=== PATIENT | female | born 1970 | race Caucasian/White ===

== ENCOUNTER 2016-03-20 17:28 | Emergency (ER) | payer MEDICAID ==
--- NOTE | 2016-03-20 18:31 | Emergency Department Record ---
History of Present Illness - General Chief complaint: Extremity Problem Stated complaint: CALF PAIN Time Seen by Provider: 03/20/16 18:23 Source: Patient Mode of Arrival: Ambulatory Limitations: No limitations - History of Present Illness Initial comments: 45 yo female presents with right leg pain for about 2 weeks. She denies any injury. No fever or redness. She has had a knot in the calf. No history of DVT. No chest pain or shortness of breath. The pain started in the calf and then up the leg. MD Complaint: Extremity pain, Extremity swelling Onset/Timin -: Week(s) Location: Right, Lower Leg History of Same: No Radiation: Proximal Severity scale (1-10): 8 Quality: Burning, Sharp Consistency: Intermittent Improves with: Immobilization, Rest Worsens with: Exertion, Walking, Weight bearing Associated Symptoms: Denies other symptoms - Related Data Allergies Allergy/AdvReac Type Severity Reaction Status Date / Time hydrocodone bitartrate Allergy HIVES Verified 03/20/16 17:44 [From Vicodin] hydromorphone HCl Allergy HIVES Verified 03/20/16 17:44 [From Dilaudid] oxycodone HCl [From Percocet] Allergy HIVES Verified 03/20/16 17:44 Travel Screening - Travel/Exposure Within Last 30 Days Have you traveled within the last 30 days?: No - Travel/Exposure Within Last Year Have you traveled outside the [place] in the last year?: No - Additonal Travel Details Have you been exposed to anyone with a communicable illness?: No - Travel Symptoms Symptom Screening: None Review of Systems Constitutional: Denies: Chills, Fever, Malaise, Weakness Eyes: Denies: Eye discharge, Eye pain, Photophobia, Vision change ENT: Denies: Congestion, Throat pain Respiratory: Denies: Cough, Dyspnea, Hemoptysis, Stridor, Wheezes Cardiovascular: Denies: Chest pain, Palpitations, Syncope Endocrine: Denies: Fatigue Gastrointestinal: Denies: Abdominal pain, Diarrhea, Hematemesis, Hematochezia, Nausea, Vomiting Genitourinary: Denies: Dysuria Musculoskeletal: Reports: Back pain, Myalgia. 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) - RESPIRATORY Hx Respiratory Disorders: No - CARDIOVASCULAR Hx Cardio Disorders: No - NEURO Hx Neuro Disorders: Yes Hx Neuropathy: Yes Comment:: TBI 2013 - GI Hx GI Disorders: No - Hx Genitourinary Disorders: Yes Comment:: Endometriosis - ENDOCRINE Hx Endocrine Disorders: No - MUSCULOSKELETAL Hx Musculoskeletal Disorders: Yes Hx Back Injury: Yes - PSYCH Hx Psych Problems: No - HEMATOLOGY/ONCOLOGY Hx Hematology/Oncology Disorders: No Family Medical History Any Significant Family History?: No Physical Exam - General General Appearance: Alert, Oriented x3, Cooperative, No acute distress Limitations: No limitations - Head Head exam: Atraumatic, Normal inspection - Eye Eye exam: Normal appearance, PERRL. negative: Conjunctival injection - ENT ENT exam: Normal exam Ear exam: Normal external inspection Nasal Exam: Normal inspection Mouth exam: Normal external inspection Teeth exam: Normal inspection Throat exam: Normal inspection - Neck Neck exam: Normal inspection, Full ROM. negative: Tenderness - Respiratory Respiratory exam: Normal lung sounds bilaterally. negative: Respiratory distress - Cardiovascular Cardiovascular Exam: Regular rate, Normal rhythm, Normal heart sounds - GI/Abdominal GI/Abdominal exam: Soft. negative: Tenderness - Rectal Rectal exam: Deferred - exam: Deferred - Extremities Extremities exam: Normal inspection, Full ROM, Normal capillary refill, Tenderness. negative: Joint swelling, Pedal edema - Back Back exam: Reports: Normal inspection, Full ROM. Denies: CVA tenderness (R), CVA tenderness (L), Muscle spasm, Paraspinal tenderness, Rash noted, Tenderness , Vertebral tenderness - Neurological Neurological exam: Alert, Normal gait, Oriented X3, Reflexes normal - Psychiatric Psychiatric exam: Normal affect, Normal mood - Skin Skin exam: Dry, Intact, Normal color, Warm Course Vital Signs 03/20/16 03/20/16 17:37 18:06 Temperature 98.0 F 98.0 F Pulse Rate [ 87 Pulse Ox Probe] Respiratory 16 16 Rate Blood Pressure 115/73 [Left Arm] Pulse Ox 96 96 - Reevaluation(s) Reevaluation #1: I DW the patient no US I NIRAV Tobar who accepts the patient for transfer 03/20/16 18:28 Disposition Disposition: Transfer Clinical Impression: Pain of left calf Disposition: Home, Self-Care [place] [facility] [place]: No [place] available at [facility] Accepting Physician: Amadou Time Discussed w/Accepting Physician: 18:31 Condition: (2) Stable Instructions: Deep Venous Thrombosis (ED) Additional Instructions: Go directly [place] [facility] [place] to rule out a blood clot in the right leg Forms: Patient Portal Access Time of Disposition: 18:31
[2016-03-20] MEDS: KETOROLAC 30 MG/ML VIAL IM ONE (18:45)
== END 2016-03-20 19:04 | disposition home or self-care (01) ==
LOC: ER 17:28
DX: M79.661 Pain in right lower leg (principal)
CPT/HCPCS: 99284 ×2; 96372; J1885

== ENCOUNTER 2017-03-04 13:28 | Emergency (ER) | payer MEDICAID ==
[2017-03-04] MEDS ORDERED: 0.9 % SODIUM CHLORIDE 1,000 ML BAG IV ONE ×2 (13:29→14:43)
[2017-03-04] MEDS ORDERED: LORAZEPAM 2 MG/ML VIAL IV ONE ×2 (13:30→13:58)
--- NOTE | 2017-03-04 13:37 | Emergency Department Record ---
Anxiety - General Chief Complaint: Anxiety Stated Complaint: ANXIETY Time Seen by Provider: 03/04/17 13:28 Source: Patient, Family Mode of Arrival: Ambulatory Limitations: No limitations - History of Present Illness Initial Comments: 46 yo female presents with significant anxiety, depression, PTSD, with two days of increasing symptoms. She was seen earlier in the week with concerns about her medications. Her medications were discontinued. Her anxiety levels have abruptly increased. She is tearful, rapid thoughts, unable to control her anxiety. She was again seen by her PCP office today. With the escalation of symptoms she was referred to the ER. She reports muscle spasms, twitches, and feels unstable. Her Elavil, Flexeril, Effexor, and Trazadone have been held. She has had similar symptoms in the past that were attributed to possible serotonin syndrome. MD Complaint: Anxiety -: Days(s) (2) Symptoms: Dyspnea Place: Home Severity: Severe Quality: Constant Provoking factors: Emotional stress Improves With: Nothing Worsens With: Other (Removal of medications) Associated symptoms: Headaches (migraine), Nausea/vomiting, Shortness of breath - Related Data Home Medications: Home Medications Medication Instructions Recorded Confirmed Last Taken Amitriptyline HCl 25 mg PO DAILY 03/04/17 03/04/17 03/01/17 Trazodone HCl 50 mg PO QHS 03/04/17 03/04/17 03/01/17 Venlafaxine HCl [Effexor Xr] 150 mg PO DAILY 03/04/17 03/04/17 03/01/17 Allergies/Adverse Reactions: Allergies Allergy/AdvReac Type Severity Reaction Status Date / Time hydromorphone HCl Allergy HIVES Verified 03/04/17 14:35 [From Dilaudid] hydrocodone bitartrate AdvReac Mild ITCHING Verified 03/04/17 14:35 [From Vicodin] oxycodone HCl [From Percocet] AdvReac Mild ITCHING Verified 03/04/17 14:35 Review of Systems Constitutional: Denies: Chills, Fever, Malaise, Weakness Eyes: Reports: Vision change. Denies: Eye discharge, Eye pain, Photophobia ENT: Denies: Congestion, Ear pain, Throat pain Respiratory: Denies: Cough, Dyspnea, Hemoptysis, Stridor, Wheezes Cardiovascular: Denies: Chest pain, Palpitations, Syncope Endocrine: Reports: Fatigue. Denies: Polydipsia, Polyuria Gastrointestinal: Reports: Diarrhea, Nausea. Denies: Abdominal pain, Vomiting Genitourinary: Denies: Dysuria, Frequency, Urgency Musculoskeletal: Denies: Arthralgia, Back pain, Myalgia, Neck pain Skin: Denies: Bruising, Change in color, Rash Neurological: Reports: Headache (migraines). Denies: Abnormal gait, Confusion, Numbness, Paresthesias, Seizure, Tingling, Tremors, Vertigo, Weakness Psychiatric: Reports: Anxiety, Depression. 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) - RESPIRATORY Hx Respiratory Disorders: No - CARDIOVASCULAR Hx Cardio Disorders: No - NEURO Hx Neuro Disorders: Yes Hx Neuropathy: Yes Comment:: TBI 2013 - GI Hx GI Disorders: No - Hx Genitourinary Disorders: Yes Comment:: Endometriosis - ENDOCRINE Hx Endocrine Disorders: No - MUSCULOSKELETAL Hx Musculoskeletal Disorders: Yes Hx Back Injury: Yes - PSYCH Hx Psych Problems: No - HEMATOLOGY/ONCOLOGY Hx Hematology/Oncology Disorders: No Physical Exam - General General Appearance: Alert, Oriented x3, Cooperative, Anxious Limitations: No limitations - Head Head exam: Atraumatic, Normal inspection - Eye Eye exam: Normal appearance, PERRL. negative: Conjunctival injection, Periorbital swelling, Scleral icterus - ENT ENT exam: Normal exam, Mucous membranes moist Ear exam: Normal external inspection Nasal Exam: Normal inspection Mouth exam: Normal external inspection Teeth exam: Normal inspection Throat exam: Normal inspection - Neck Neck exam: Normal inspection, Full ROM. negative: Tenderness - Respiratory Respiratory exam: Normal lung sounds bilaterally. negative: Respiratory distress, Rhonchi, Stridor, Wheezes - Cardiovascular Cardiovascular Exam: Regular rate, Normal rhythm, Normal heart sounds Peripheral Pulses: 2+: Radial (R), Radial (L) - GI/Abdominal GI/Abdominal exam: Soft - Rectal Rectal exam: Deferred - exam: Deferred - Extremities Extremities exam: Normal inspection. negative: Pedal edema - Back Back exam: Denies: CVA tenderness (R), CVA tenderness (L) - Neurological Neurological exam: Abnormal gait, Alert, Other (Clonus is present, Myoclonis is present). negative: Motor sensory deficit, Reflexes normal (brisk) - Psychiatric Psychiatric exam: Agitated, Anxious, Depressed - Skin Skin exam: Dry, Intact, Normal color, Warm Course - Reevaluation(s) Reevaluation #1: 03/04/17 14:00 The patient examination has some features of seritonin syndrome including tremor , muscle somewhat resistant to movement, sweating. She is not tachycardic with a HR is about 90. No fever. No hypertension. She has nausea and diarrhea. 03/04/17 14:06 EKG 14:00 NSR rate of 89 intervals normal, axis normal, QT normal, ST normal. 03/04/17 14:33 The labs were reviewed. No acute changes on the CBC,CMP,Toxicology labs The patient is doing much better after the Ativan No hypertension 03/04/17 14:34 03/04/17 14:42 The patient is doing much better Hr is 84. She is calm. Speaking is a comfortable tone and speed. She appears relaxed. 03/04/17 15:13 The patient is sleeping comfortably 03/04/17 15:14 HR is currently 85 03/04/17 15:31 The patient is awake, still with her chronic back pain and migraine. I explained narcotics can worsen serotonin syndrome and do not recommend Benadryl as well is to be avoided. 03/04/17 15:59 The patient continues to do very well The patient's PCP Ines Bhatia was at the bedside as well The [facility] will schedule follow up with the clinic as well as the behavioral health related referrals We discussed at length the avoidance of her prior medications She is not tremulous. Her HR is in the 80's, BP not elevated. No fevers. Normal interaction and mentation without agitation. She is calm and cooperative. Although serotonin syndrome has been considered her symptoms currently reflex significant anxiety, she is at baseline without symptoms currently of serotonin syndrome. She responded extremely well to her care in the ED today. She prefers DC home with very reliable family. No indication at this time of need for further observation or observation. She feels safe and believes home for the holiday will be very good. Her main concern is avoiding her mother who is a significant life stress for her Her PCP will provided Ativan for the weekend until a first of the week follow up. 03/04/17 16:33 Medical Decision Making - Lab Data Result diagrams: 03/04/17 13:39 03/04/17 13:39 Disposition Disposition: Discharge Clinical Impression: Anxiety reaction Depression Qualifiers: Depression Type: unspecified Qualified Code(s): F32.9 - Major depressive disorder, single episode, unspecified Condition: (1) Good Instructions: Serotonin Syndrome (ED), Anxiety (ED) Additional Instructions: Immediately return to the ER over the weekend if you feel like the medications are not working Take the Ativan as directed by your doctor Follow up next week as scheduled Do not take any of your prior antidepressants Forms: Patient Portal Access Time of Disposition: 16:10 Quality - Quality Measures Quality Measures: N/A - Blood Pressure Screening Does Patient Have Any of the Following: No Blood Pressure Classification: Pre-Hypertensive BP Reading Systolic Measurement: 120 Diastolic Measurement: 82 Screening for High Blood Pressure: < Pre-Hypertensive BP, F/U Documented > [ [id number]] Pre-Hypertensive Follow-up Interventions: Referral to alternative/primary care provider.
[2017-03-04] MEDS ORDERED: ACETAMINOPHEN 1,000 MG/100 ML BTL IVPB ONE (13:44)
[2017-03-04 13:49] LABS: GRAN % 66.3 % (47-80); HEMOGLOBIN 15.3 gm/dl (11.6-16.0); LYMPH % 27.7 % (16-45); MEAN CELL VOLUME 83.3 fl (81-97); MEAN CORPUSCULAR HGB CONC 34.8 g/dl (32-36); MEAN PLATELET VOLUME 10.1 fl (7.4-10.4); PLATELET COUNT 225 K/uL (130-400); RED BLOOD COUNT 5.28 M/uL (3.80-5.40); RED CELL DISTRIBUTION WIDTH 13.3 % (11.5-14.5); WHITE BLOOD COUNT W/O DIFF 7.5 K/uL (4.2-12.2)
[2017-03-04 14:03] LABS: BLOOD UREA NITROGEN 10 mg/dL (6-20); CREATININE 0.7 mg/dL (0.5-0.9); EST GLOMERULAR FILTRATION RATE > 60 mL/min; TOTAL PROTEIN 7.5 g/dL (6.6-8.7)
[2017-03-04 14:05] LABS: GLUCOSE,RANDOM 82 mg/dL (74-109)
[2017-03-04 14:08] LABS: ALBUMIN 4.7 g/dL (4.0-5.0); ALKALINE PHOSPHATASE 80 U/L (35-104); ALT/SGPT 12 U/L (<33); AST/SGOT 13 U/L (10.0-35.0)
[2017-03-04 14:13] LABS: ACETAMINOPHEN < 5.0 ug/mL (10.0-30.0); ALB/GLOB RATIO 1.7 (1.1-1.8); SALICYLATE < 0.3 mg/dL (2.8-20)
[2017-03-04 14:19] LABS: THYROID STIMULATING HORMONE 1.38 uIU/mL (0.270-4.20)
[2017-03-04] MEDS ORDERED: KETOROLAC 30 MG/ML VIAL IVP ONE (14:31)
[2017-03-04] MEDS ORDERED: DIAZEPAM 5 MG/1 ML TUBX IVP ONE (15:30)
[2017-03-04] MEDS ORDERED: METHYLPREDNISOLONE PF 125MG/VIAL IVP ONE (15:31)
== END 2017-03-04 16:44 | disposition home or self-care (01) ==
LOC: ER 13:28
DX: F32.9 Major depressive disorder, single episode, unspecified (principal); F43.0 Acute stress reaction; R11.2 Nausea with vomiting, unspecified; R06.02 Shortness of breath; R51 Headache; R19.7 Diarrhea, unspecified; R25.1 Tremor, unspecified
CPT/HCPCS: 99284 ×2; 96365; 96375; 83735; 85025; 80053; 84443; 93005; 93010; G0480 ×3; J1885; J2060; 80320; 80329; J2930; J3360; J7030

== ENCOUNTER 2017-05-26 10:13 | Emergency (ER) | payer MEDICAID ==
[2017-05-26] MEDS ORDERED: ONDANSETRON HCL IV 4 MG/2 ML VIAL IV ONE (10:33)
[2017-05-26] MEDS ORDERED: 0.9 % SODIUM CHLORIDE 1,000 ML BAG IV ONE ×2 (10:33→11:25)
[2017-05-26] MEDS ORDERED: LORAZEPAM 2 MG/ML VIAL IV ONE (10:33)
[2017-05-26 10:42] LABS: GRAN % 70.7 % (47-80); HEMATOCRIT 43.6 % (35.0-47.0); HEMOGLOBIN 14.7 gm/dl (11.6-16.0); LYMPH % 23.1 % (16-45); MEAN CORPUSCULAR HGB CONC 33.7 g/dl (32-36); MEAN PLATELET VOLUME 10.7 fl (7.4-10.4); MONO % 6.2 % (0-9); PLATELET COUNT 203 K/uL (130-400); RED BLOOD COUNT 5.25 M/uL (3.80-5.40); WHITE BLOOD COUNT W/O DIFF 5.7 K/uL (4.2-12.2)
--- NOTE | 2017-05-26 10:42 | Emergency Department Record ---
History of Present Illness - General Chief complaint: Vomiting Stated complaint: VOMITING X10/NO URINE FOR 2 DAYS Time Seen by Provider: 05/26/17 10:25 Source: Patient Mode of Arrival: Ambulatory Limitations: No limitations - History of Present Illness Initial comments: The patient is here due to having an anxiety attack for almost 10 days which has caused her to be very nauseated and have frequent vomiting. She states she feels very dehydrated and has not urinated for 2 days. There is no significant AP. She did feel lightheaded yesterday and did fall in the shower and bumped her head but had no LOC. She also may have injured her back mildly but she has chronic back issues similar to this. She was supposed to see her doctor for anxiety 2 days ago but it got rescheduled due to a scheduling issue. MD complaint: Nausea, Vomiting Onset/Timin -: Days(s) Description of Vomiting: Bilious, Watery Associated Abdominal Pain: No Radiation: Back Severity scale (1-10): 7 Quality: Aching Consistency: Constant Improves with: None Worsens with: None Associated Symptoms: Headaches, Nausea/vomiting - Related Data Previous Rx's Medication Instructions Recorded Ondansetron [Zofran Odt] 4 mg SL .Q4-6H PRN #12 tab.rapdis 05/26/17 Allergies Allergy/AdvReac Type Severity Reaction Status Date / Time hydromorphone HCl Allergy HIVES Unverified 03/10/17 15:39 [From Dilaudid] hydrocodone bitartrate AdvReac Mild ITCHING Unverified 03/10/17 15:39 [From Vicodin] oxycodone HCl [From Percocet] AdvReac Mild ITCHING Unverified 03/10/17 15:39 Travel Screening - Travel/Exposure Within Last 30 Days Have you traveled within the last 30 days?: No Review of Systems Constitutional: Denies: Chills, Fever Eyes: Denies: Eye discharge ENT: Denies: Congestion Respiratory: Denies: Cough Past Medical History - SOCIAL HISTORY Smoking Status: Current every day smoker - 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) - RESPIRATORY Hx Respiratory Disorders: No - CARDIOVASCULAR Hx Cardio Disorders: Yes Hx Palpitations: Yes (tachy takes propranolol PRN last-12/2015) - NEURO Hx Neuro Disorders: Yes Hx Neuropathy: Yes Comment:: TBI 2012 - GI Hx GI Disorders: Yes Hx Abdominal Pain: Yes (Left side abd.& low back) Hx GI Bleed: Yes Hx Nausea/Vomiting: Yes (both) - Hx Genitourinary Disorders: Yes Comment:: Endometriosis - ENDOCRINE Hx Endocrine Disorders: No - MUSCULOSKELETAL Hx Musculoskeletal Disorders: Yes Hx Back Injury: Yes - PSYCH Hx Psych Problems: No Hx Depression: Yes (?PTSD) - HEMATOLOGY/ONCOLOGY Hx Hematology/Oncology Disorders: No Family Medical History Any Significant Family History?: No Physical Exam - General General Appearance: Alert, Oriented x3, Cooperative, Mild distress (due to anxiety.) - Head Head exam: Atraumatic, Normocephalic, Normal inspection Head exam detail: General tenderness (mildly diffusely all over the scalp. There are no signs of any trauma.). negative: Abrasion, Contusion, Shelton's sign - Eye Eye exam: Normal appearance, PERRL - ENT Throat exam: Normal inspection. negative: Tonsillar erythema, Tonsillar exudate - Neck Neck exam: Normal inspection, Full ROM. negative: Meningismus (The neck is very supple.), Tenderness - Respiratory Respiratory exam: Normal lung sounds bilaterally. negative: Respiratory distress - Cardiovascular Cardiovascular Exam: Regular rate, Normal rhythm, Normal heart sounds - GI/Abdominal GI/Abdominal exam: Soft, Normal bowel sounds. negative: Tenderness - Extremities Extremities exam: Normal inspection, Full ROM, Normal capillary refill. negative: Tenderness - Back Back exam: Reports: Normal inspection - Neurological Neurological exam: Alert, Normal gait, Oriented X3, Other. negative: Abnormal gait, Altered, Motor sensory deficit - Psychiatric Psychiatric exam: Anxious - Skin Skin exam: negative: Rash Course Vital Signs 05/26/17 10:18 Temperature 98.8 F Pulse Rate 86 Respiratory 20 Rate Blood Pressure 121/82 Pulse Ox 99 - Reevaluation(s) Reevaluation #1: The patient is doing better at this time. Her nausea is gone but now she feels that she has a migraine RANDOLPH. She feels rehydrated after 2 liters of IVF. 05/26/17 12:35 Reevaluation #2: The patient is doing much better at this time. She states her RANDOLPH is now her typical migraine RANDOLPH and she just needs to go home and rest. I did recommend a head CT to R/O any signficant head injury or bleed and the patient is refusing. She understands the risks of refusing which include a worsening head injury, stroke, disability and and she accepts the risks. She understands we cannot be held liable for NOT ordering the test and presently she has proper decision making capacity. 05/26/17 12:54 Medical Decision Making - Lab Data Result diagrams: 05/26/17 10:25 05/26/17 10:25 Disposition Disposition: Discharge Clinical Impression: Anxiety reaction Disposition: Home, Self-Care Condition: (2) Stable Instructions: Acute Nausea and Vomiting (ED) Additional Instructions: Please use Tylenol or Motrin for pain and take the Ativan tonight if needed. Please use the Zofran for nausea. Follow up with your family doctor tomorrow if not better and return to the ER for any worsening symptoms. Prescriptions: Ondansetron [Zofran Odt] 4 mg SL .Q4-6H PRN #12 tab.rapdis PRN Reason: Nausea Forms: Patient Portal Access Time of Disposition: 12:51 Quality - Quality Measures Quality Measures: N/A - Blood Pressure Screening View Details: Yes Does Patient Have Any of the Following: No Blood Pressure Classification: Normal BP Reading Systolic Measurement: 107 Diastolic Measurement: 74 Screening for High Blood Pressure: < Normal BP, F/U Not Required > [G8783]
[2017-05-26] MEDS ORDERED: ACETAMINOPHEN 325 MG TAB PO ONE (11:06)
[2017-05-26 11:30] LABS: ALBUMIN 4.5 g/dL (4.0-5.0); ALKALINE PHOSPHATASE 67 U/L (35-104); ALT/SGPT 11 U/L (<33); AST/SGOT 12 U/L (10.0-35.0); BLOOD UREA NITROGEN 15 mg/dL (6-20); CREATININE 0.6 mg/dL (0.5-0.9); EST GLOMERULAR FILTRATION RATE > 60 mL/min; GLUCOSE,RANDOM 98 mg/dL (74-109); LIPASE 20 U/L (13-60); TOTAL PROTEIN 7.4 g/dL (6.6-8.7)
[2017-05-26 11:33] LABS: BILIRUBIN,DIRECT < 0.2 mg/dL (0-0.3)
[2017-05-26] MEDS ORDERED: POTASSIUM CHLORIDE 20 MEQ TABLET PO ONE (11:37)
[2017-05-26 12:07] LABS: URINE APPEARANCE CLOUDY; URINE BILIRUBIN NEGATIVE (NEGATIVE); URINE BLOOD MODERATE (NEGATIVE); URINE COLOR YELLOW; URINE GLUCOSE (UA) NEGATIVE (NEGATIVE); URINE KETONE 40 mg/dL (NEGATIVE); URINE LEUKOCYTE ESTERASE NEGATIVE (NEGATIVE); URINE NITRITE NEGATIVE (NEGATIVE); URINE PROTEIN NEGATIVE (NEGATIVE); URINE UROBILINOGEN 0.2 E.U./dL (0.20 - 1.00)
[2017-05-26 12:15] LABS: URINE BACTERIA NONE SEEN; URINE EPITHELIAL CELLS 0 - 2 (FEW); URINE WBC NONE SEEN (0-2/hpf)
[2017-05-26] MEDS ORDERED: KETOROLAC 30 MG/ML VIAL IVP ONE (12:21)
[2017-05-26] MEDS ORDERED: LORAZEPAM 0.5 MG TABLET PO ONE (12:51)
== END 2017-05-26 13:10 | disposition home or self-care (01) ==
LOC: ER 10:13
DX: F41.0 Panic disorder [episodic paroxysmal anxiety] (principal); R11.2 Nausea with vomiting, unspecified; R51 Headache; F17.210 Nicotine dependence, cigarettes, uncomplicated
CPT/HCPCS: 99284 ×2; 96374; 96375; 83690; 85025; 80076; 80048; 81001; J1885; J2405; J2060; J7030